=== PATIENT | male | born 1955 | race Hispanic/Latino ===

== ENCOUNTER 2021-08-22 14:57 | Outpatient (RCR) | payer OTHER | END 2021-08-24 | LOC: PT 14:57 | PROVIDERS: ATTEND Specialist | DX: M17.11 Unilateral primary osteoarthritis, right knee (principal); M70.41 Prepatellar bursitis, right knee; S83.221D Peripheral tear of medial meniscus, current injury, right knee, subsequent encounter; M25.561 Pain in right knee; M62.81 Muscle weakness (generalized) ==

== ENCOUNTER 2021-09-08 15:00 | Outpatient (RCR) | payer OTHER | END 2021-09-24 | LOC: PT 15:00 | PROVIDERS: ATTEND Specialist | DX: M17.11 Unilateral primary osteoarthritis, right knee (principal); M70.41 Prepatellar bursitis, right knee; S83.221D Peripheral tear of medial meniscus, current injury, right knee, subsequent encounter; M62.81 Muscle weakness (generalized); M25.561 Pain in right knee ==